=== PATIENT | male | born 1965 | race African-American/Black ===

== ENCOUNTER 2017-06-25 02:25 | Emergency (ER) | payer OTHER ==
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
--- NOTE | 2017-06-25 03:20 | RADIOLOGY IMAGING REPORT ---
FACILITY: [facility] - [place] PATIENT NAME: Molina Hurtado : 1965 MR: [id number] V: [id number] EXAM DATE: ORDERING PHYSICIAN: SKYLER MURRAY TECHNOLOG[place]: [place] [facility] [place] Molina Hurt[place] : 1965 Visit/Account:[id number] Date of Sevice: 06/25/2017 EXAMINATION: Head CT without intravenous contrast History: none TECHNIQUE: Contiguous axial images were obtained from the skull base to the vertex without intraven ous contrast. One of the following dose optimization techniques was utilized in the performance of th is exam: Automated exposure control; adjustment of the mA and/or kV according to the patient's size; or use of an iterative reconstruction technique. Specific details can be referenced in the facility 's radiology CT exam operational policy. COMPARISON STUDIES: none FINDINGS: Visualized mastoid air cells / paranasal sinuses: negative Calvarium and scalp: negative White matter: Several small areas of low-attenuation in the white matter likely due to chronic small vessel disease. Coarse calcification in the right basal ganglia likely benign. Dural venous sinuses / arterial structures: negative Ventricles / sulci / fissures: Caval septum pellucidum. Masses / hemorrhage / midline shift: negative Extra-axial spaces: negative IMPRESSION: 1. No evidence of acute intracranial pathology. 2. Nonspecific white matter changes probably due to remote ischemic events. Report Dictated By: Krishna Saenz MD at 06/25/2017 3:13 AM Report E-Signed By: Krishna Saenz MD at 06/25/2017 3:16 AM WSN:[id number]
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
[2017-06-25 03:30] VITALS: BP 135/88
== END 2017-06-25 04:03 | disposition home or self-care (01) ==
LOC: ER 02:45
DX: R51 Headache (principal); V89.2XXA Person injured in unspecified motor-vehicle accident, traffic, initial encounter
CPT/HCPCS: 70450; 72125; 99283

== ENCOUNTER → 2017-06-25 | Outpatient (CLI) | payer OTHER | LOC: AMB 01:31 | PROVIDERS: ATTEND Nurse Practitioner | DX: R51 Headache (principal); M25.561 Pain in right knee; M54.9 Dorsalgia, unspecified; V69.9XXA Occupant (driver) (passenger) of heavy transport vehicle injured in unspecified traffic accident, initial encounter; Y92.411 Interstate highway as the place of occurrence of the external cause | CPT/HCPCS: A0425; A0427 ==